=== PATIENT | male | born 2000 | race Caucasian/White ===

== ENCOUNTER 2020-08-31 16:04 | Emergency (ER) | payer BC ==
[2020-08-31] MEDS ORDERED: Diphtheria,Pertussis(Acell),Tetanus Vaccine 0.5 ML Syringe IM ONE (16:30)
[2020-08-31] MEDS ORDERED: ceFAZolin 1 GM Vial IM ONE (16:31)
--- NOTE | 2020-08-31 17:31 | EDM.PDOC ---
ED HPI GENERAL MEDICAL PROBLEM - General Chief Complaint: Upper Extremity Injury/Pain Stated Complaint: finger injury Time Seen by Provider: 08/31/20 16:09 Source of Information: Reports: Patient History Limitations: Reports: No Limitations - History of Present Illness INITIAL COMMENTS - FREE TEXT/NARRATIVE: Pt. states that he got his hand caught between a skid steer bucket and a pallet this afternoon, injuring the 4th digit of L hand. Pt. tetanus is not up to date. Pt. denies any numbness/tingling distal to the area of injury. denies any injury other than what is isolated to above named digit. 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 - Related Data Allergies Allergy/AdvReac Type Severity Reaction Status Date / Time amoxicillin [Amoxicillin] Allergy Rash Verified 08/31/20 16:14 Home Meds: Home Meds Loratadine/Pseudoephedrine [Loratadine-D 12 Hour Tablet] 1 each PO DAILY 08/31/20 [History] Past Medical History HEENT History: Reports: None - Past Surgical History HEENT Surgical History: Reports: Adenoidectomy, Tonsillectomy Social & Family History - Tobacco Use Tobacco Use Status *Q: Never Tobacco User Second Hand Smoke Exposure: No - Caffeine Use Caffeine Use: Reports: Coffee, Soda - Recreational Drug Use Recreational Drug Use: No - Living Situation & Occupation Living situation: Reports: with Family Occupation: Student Review of Systems - Review of Systems Review Of Systems: Comprehensive ROS is negative, except as noted in HPI. ED EXAM, GENERAL - Physical Exam Exam: See Below Exam Limited By: No Limitations General Appearance: Alert, WD/WN, No Apparent Distress Extremities: Limited Range of Motion, Redness, Other (Edema and ecchymosis noted to 4th digit of L hand. No obvious crepitus or obvious daniela deformity noted. Nail is intact. CMS is intact. There is a non-gaping laceration/abrasion noted to the lateral aspect of the finger. There are some small bits of devitilized tissue/hematom within the open lesion.). No: Normal Range of Motion ED TRAUMA EXTREMITY PROCEDURES - Splinting Left Upper Extremity Pre-Procedure NV Status: Normal Post-Procedure NV Status: Normal Splint Material: Fiberglass Splint Design: Gutter Applied & Form Fitted By: Provider, Nurse Provider Post-Splint Application NV Check: NV Status Normal, Good Position Complications: No - Foreign Body Removal Indication:: laceration/abrasion to 4th digit of L hand. Consent Obtained: Patient Performing Doctor:: Olu Blum Foreign Body Other Location Comment:: devitilized tissue was excised from the laceration/abrasion under sterile technique. Lesion was anesthetized with approx. 2ml of 1% lidocaine. Sterile dressing was applied by nursing post excision. Anesthesia Type: Local Complications:: No Comments:: Injury will be allowed to close via secondary intention, per request of hand surgeon. Course - Vital Signs Last Recorded V/S: Last Vital Signs Temp 37.6 C 08/31/20 16:15 Pulse 100 08/31/20 16:30 Resp 14 08/31/20 16:15 BP 152/80 H 08/31/20 16:30 Pulse Ox 100 08/31/20 16:15 - Orders/Labs/Meds Orders: Active Orders 24 hr Category Date Time Status Vaccines to be Administered [RC] PER UNIT ROUTINE Care 08/31/20 16:30 Active Fingers Fourth Digit Lt F3 [CR] Stat Exams 08/31/20 16:12 Taken Meds: Medications Discontinued Medications Generic Name Dose Route Start Last Admin Trade Name Freq PRN Reason Stop Dose Admin Cefazolin Sodium 1 gm 08/31/20 16:31 08/31/20 16:42 Cefazolin 1 Gm Vial IM 08/31/20 16:32 1 gm ONETIME ONE Administration Diphtheria/Tetanus/Acell Pertussis 0.5 ml 08/31/20 16:30 08/31/20 16:41 Diphtheria,Pertussis(Acell),Tetanus Vaccine 0.5 Ml Syringe IM 08/31/20 16:31 0.5 ml .ONCE ONE Administration Lidocaine HCl 5 ml 08/31/20 16:50 08/31/20 16:53 Lidocaine 1% 5 Ml Sdv INJECT 08/31/20 16:51 5 ml ONETIME ONE Administration - Radiology Interpretation Free Text/Narrative:: Non-displaced fracture of proximal portion of 4th digit of L hand. Departure - Departure Time of Disposition: 17:15 Disposition: Home, Self-Care 01 Clinical Impression: Phalanx, proximal fracture of finger - Discharge Information Instructions: Finger Fracture, Adult, [id number], Cast or Splint Care, Adult, [id number], Cephalexin Tablets or Capsules, Probiotics Referrals: PCP,Unknown [Primary Care Provider] - Forms: ED Department Discharge Additional Instructions: [facility] will be in contact with you regarding an appointment this week. Keep splint and dressing on. Protect splint from getting wet. Cephalexin 500mg 1 tab 4 times daily for 5 days Sepsis Event Note (ED) - Evaluation Sepsis Screening Result: No Definite Risk - Focused Exam Vital Signs: Vital Signs Temp Pulse Resp BP Pulse Ox 08/31/20 16:30 100 152/80 H 08/31/20 16:15 37.6 C 96 14 152/66 H 100 08/31/20 16:05 152/66 H - Problem List Review Problem List Initiated/Reviewed/Updated: Yes - My Orders Last 24 Hours: My Active Orders 08/31/20 16:12 Fingers Fourth Digit Lt F3 [CR] Stat 08/31/20 16:30 Vaccines to be Administered [RC] PER UNIT ROUTINE - Assessment/Plan Last 24 Hours: My Active Orders 08/31/20 16:12 Fingers Fourth Digit Lt F3 [CR] Stat 08/31/20 16:30 Vaccines to be Administered [RC] PER UNIT ROUTINE Plan: [facility] will be in contact with you regarding an appointment this week. Keep splint and dressing on. Protect splint from getting wet. Cephalexin 500mg 1 tab 4 times daily for 5 days
== END 2020-08-31 17:25 | disposition home or self-care (01) ==
LOC: LL.ED 16:04
DX: S62.645A Nondisplaced fracture of proximal phalanx of left ring finger, initial encounter for closed fracture (principal); Z23 Encounter for immunization; Z88.0 Allergy status to penicillin; W23.0XXA Caught, crushed, jammed, or pinched between moving objects, initial encounter
CPT/HCPCS: 29125; 73140-F3; 90471; 90715; 96372; 99283-25; 99284; J0690